=== PATIENT | female | born 1995 | race Two or more races ===

== ENCOUNTER 2021-05-12 21:17 | Emergency (ER) | payer OTHER ==
[~2021-05-12] VITALS: Ht 162.6 cm; Wt 84.8 kg
[2021-05-12] MEDS ORDERED: HEMATRON-AF TABLETS (21:31)
[2021-05-12] MEDS ORDERED: ZYRTEC10 MG PO (22:46)
== END 2021-05-12 22:50 | disposition home or self-care (01) ==
LOC: ER 21:17
DX: J00 Acute nasopharyngitis [common cold] (principal)